=== PATIENT | female | born 1975 | race Hispanic/Latino ===

== ENCOUNTER 2020-08-14 09:54 | Outpatient (CLI) | payer OTHER ==
[2020-08-14 10:34] LABS: Bilirubin Neg (Negative); Blood, Urine Negative (Negative); Clarity Clear (Clear); Glucose, Urine (Dipstick) Normal (Negative); Ketone, Urine Negative (Negative); Leukocyte Negative (Negative); Nitrite Negative (Negative); Protein, Urine (Dipstick) Negative (Neg-Trace); Urobilinogen Normal mg/dL (Less than 2)
[2020-08-14 10:43] LABS: Mean Corpuscular HGB CONC 34.7 g/dL (32.0-36.0); Mean Corpuscular Hemoglobin 29.1 pg (27.0-33.0); Mean Platelet Volume 10.1 fl (7.4-10.4); Platelet Count 304 10x3/uL (150-450); RBC Distribution Width 14.1 % (11.5-14.5); Red Blood Cell (RBC) Count 4.81 10x6/uL (3.90-5.03); White Blood Cell (WBC) Count 7.3 10x3/uL (3.5-10.5)
[2020-08-14 10:46] LABS: Bacteria/HPF None Seen HPF (None Seen); RBC/HPF 0-3 HPF (0-3); Squamous Epithelial None Seen HPF (0-3); WBC/HPF None Seen HPF (0-3)
[2020-08-14 10:49] LABS: BHCG - Serum Negative (NEGATIVE)
[2020-08-14 10:50] LABS: Pregs Control Background? CLEAR/WHITE (CLR/WHITE); Pregs Control Bar Appear? YES (CONTROL BAR)
[2020-08-14 22:35] LABS: SARS-CoV-2 PCR by NAA Not Detected (NotDetected)
== END 2020-08-14 09:55 | disposition home or self-care (01) ==
LOC: CSHLAB 09:54
PROVIDERS: ATTEND Obstetrics & Gynecology
DX: Z01.812 Encounter for preprocedural laboratory examination (principal); Z20.822 Contact with and (suspected) exposure to COVID-19; N93.9 Abnormal uterine and vaginal bleeding, unspecified; N92.0 Excessive and frequent menstruation with regular cycle; N85.2 Hypertrophy of uterus; D64.9 Anemia, unspecified
CPT/HCPCS: 81001; 84703; 85027; 87635; U0003; U0005

== ENCOUNTER 2020-08-17 06:32 | Inpatient (IN) | payer OTHER ==
[2020-08-16 10:01] VITALS: BMI 35.5
[~2020-08-17 06:32] MED LIST: Bupivacaine PF 0.5% 30 ML VIAL ONE; EPINEPHrine 1 MG/ML AMP ONE; Lidocaine 1% MPF 2 ML VIAL ONE
[2020-08-17] MEDS ORDERED: Rocuronium Bromide 10 MG/ML (10ML VIAL) ONE (06:53)
[2020-08-17] MEDS ORDERED: PROPOFOL 20 ML ONE (06:53)
[2020-08-17] MEDS ORDERED: Lidocaine 1% PF 5 ML VIAL ONE (06:53)
[2020-08-17] MEDS ORDERED: Fentanyl 100 MCG/2 ML VIAL ONE ×2 (06:53→10:14)
[2020-08-17] MEDS ORDERED: Lidocaine 2% Jelly 5 ML TUBE ONE (07:03)
[2020-08-17] MEDS ORDERED: Dexamethasone 20 MG/5 ML VIAL ONE (07:27)
[2020-08-17] MEDS ORDERED: Glycopyrrolate 0.2 MG/ML 5 ML SYRINGE ONE (07:48)
[2020-08-17] MEDS ORDERED: Ketorolac Tromethamine 30 MG/ML VIAL ONE (09:52)
[2020-08-17] MEDS ORDERED: Ondansetron PF 4 MG/2 ML Vial ONE ×2 (09:52→15:31)
[2020-08-17] MEDS ORDERED: HYDROcodone/Acetaminophen 10/325 mg Tablet PO PRN ×2 (11:39)
[2020-08-17] MEDS ORDERED: Lactated Ringer's 1,000 ML IV SCH (11:39)
[2020-08-17] MEDS ORDERED: Morphine 2 MG/ML VIAL SLOW IVP PRN (11:39)
[2020-08-17] MEDS ORDERED: Promethazine HCl 25 MG/ML VIAL IM PRN (11:39)
[2020-08-17] MEDS ORDERED: Acetaminophen 325 MG TAB PO PRN (11:39)
[2020-08-17 15:04] LABS: Hemoglobin 12.6 g/dL (12.0-15.5)
[2020-08-17] MEDS ORDERED: Morphine 2 MG/ML VIAL ONE (15:32)
[2020-08-17] MEDS ORDERED: Ketorolac Tromethamine 30 MG/ML VIAL IVP SCH (16:00)
== END 2020-08-17 16:20 | disposition home or self-care (01) | DRG 743 ==
LOC: CSHSDC 06:32 → CSHPP 10:02
PROVIDERS: ADMIT Obstetrics & Gynecology; ATTEND Obstetrics & Gynecology
PROC: 0UT94ZZ Resection of Uterus, Percutaneous Endoscopic Approach (ICD-10-PCS; principal; 2020-08-17)
PROC: 0UT74ZZ Resection of Bilateral Fallopian Tubes, Percutaneous Endoscopic Approach (ICD-10-PCS; 2020-08-17)
PROC: 8E0W4CZ Robotic Assisted Procedure of Trunk Region, Percutaneous Endoscopic Approach (ICD-10-PCS; 2020-08-17)
DX: D25.9 Leiomyoma of uterus, unspecified (principal); N93.9 Abnormal uterine and vaginal bleeding, unspecified; N92.0 Excessive and frequent menstruation with regular cycle; N85.2 Hypertrophy of uterus; D64.9 Anemia, unspecified; R73.03 Prediabetes
CPT/HCPCS: 81001; 84703; 85014; 85018; 85027; 87635; 88307; J0171; J0690; J1100; J1885; J2270; J2405; J2704; J3010; S0020; U0003; U0005